=== PATIENT | female | born 1960 | race African-American/Black ===

== ENCOUNTER 2019-04-29 10:02 | Emergency (ER) | payer MEDICAID ==
[~2019-04-29] VITALS: Ht 162.6 cm; Wt 86.2 kg
[2019-04-29 10:08] VITALS: BP_SYST 120
--- NOTE | 2019-04-29 10:14 | NUR ---
Patient to ER bed 7 to gown for evaluation. Side rails up. Report given to Linus COE.
--- NOTE | 2019-04-29 10:15 | NUR ---
PT is AOx4 and sitting comfortably at bedside. PT came to the ER due to bleeding when passing stool. PT advised that the blood is bright red and stops when wiping. PT is not presenting any signs of acute distress.
--- NOTE | 2019-04-29 10:20 | NUR ---
ER at bedside examining patient.
--- NOTE | 2019-04-29 10:45 | NUR ---
Patient transported to radiology via wheelchair, accompanied by rad staff.
[2019-04-29 11:16] LABS: BASOPHILS # (AUTO) 0.1 K/uL (0.0-0.2); BASOPHILS % (AUTO) 1.1 % (0.0-2.0); EOSINOPHILS # (AUTO) 0.1 K/uL (0.0-0.4); EOSINOPHILS % (AUTO) 1.7 % (0.0-4.0); HEMATOCRIT 32.8 % (36-48); HEMOGLOBIN 11.2 g/dL (12.0-16.0); LYMPHOCYTES # (AUTO) 1.8 K/uL (1.0-5.5); MEAN CORPUSCULAR HEMOGLOBIN 29 pg (27-31); MEAN CORPUSCULAR HGB CONC 34 % (32-36); MEAN CORPUSCULAR VOLUME 85 fL (79.0-98.0); MONOCYTES # (AUTO) 0.3 K/uL (0.0-1.0); MONOCYTES % (AUTO) 5.9 % (1.7-9.3); NEUTROPHILS # (AUTO) 3.2 K/uL (1.8-7.7); NEUTROPHILS % (AUTO) 58.3 % (40.0-70.0); PLATELET COUNT (AUTO) 414 K/uL (130-430); RED BLOOD CELL COUNT(AUTO) 3.86 MIL/uL (4.2-6.2); RED CELL DISTRIBUTION WIDTH 15.9 % (9.0-15.0); WHITE BLOOD COUNT (AUTO) 5.5 K/uL (4.8-10.8)
--- NOTE | 2019-04-29 11:30 | NUR ---
Patient resting quietly. No acute distress noted. Vital signs within normal range.
[2019-04-29 11:31] LABS: CALCIUM 9.5 mg/dL (8.4-11.0); CREATININE 0.79 mg/dL (0.55-1.30); POTASSIUM 3.7 mmol/L (3.5-5.1)
[2019-04-29 11:33] LABS: PROTHROMBIN TIME 10.4 SECS (9.5-12.5)
[2019-04-29 11:35] LABS: TOTAL BILIRUBIN 0.5 mg/dL (0.0-1.0)
--- NOTE | 2019-04-29 12:29 | NUR ---
Patient resting quietly. No acute distress noted. Vital signs within normal range.
--- NOTE | 2019-04-29 13:30 | NUR ---
Patient given written and verbal discharge instructions and verbalizes understanding. ER MD discussed with patient the results and treatment provided. Patient in stable condition. ID arm band removed. Rx of Anusol HC 2.5% rectal cream and Colace given. Patient educated on pain management and to follow up with PMD. Pain Scale 0/10. Opportunity for questions provided and answered. Medication side effect fact sheet provided.
[2019-04-29 13:32] VITALS: BP_SYST 106
== END 2019-04-29 13:30 | disposition home or self-care (01) ==
LOC: SED 10:02
DX: K64.9 Unspecified hemorrhoids (principal)
CPT/HCPCS: 36415; 80053; 82150-TC; 83605; 83690-TC; 85025; 85610-TC; 85730-TC; 99284